=== PATIENT | male | born 1960 | race Caucasian/White ===

== ENCOUNTER 2017-10-07 14:50 | Emergency (ER) | payer BC ==
[~2017-10-07] VITALS: Ht 193 cm; Wt 158.8 kg
--- OUTSIDE RECORDS SUMMARY | ~2017-10-07 | XMS | Clinical Summary ---
Demographics + + + | Address | [address] | | | [place] [address] | + + + | Home Phone | | + + + | Preferred Language | Unknown | + + + | Marital Status | Single | + + + | Samaritan Affiliation | Unknown | + + + [...] Team Providers + +------+ + | Care Spoon Maker Name | Role | Phone | + +------+ + PP | Unavailable | + +------+ + Source Comments KITA is fully live on both [facility] Ambulatory and [facility] InPatient.[facility] Allergies Not on File Current Medications [...]
--- OUTSIDE RECORDS SUMMARY | ~2017-10-07 | XMS ---
Demographics + + + | Address | [address] | | | [place] [address] | + + + | Preferred Language | Unknown | + + + | Marital Status | Unknown | + + + | Anabaptist Affiliation | Unknown | + + + | Race | Unknown | + + + | Ethnic Group | Unknown | + + + Author + + + | Author | [facility] | + + + | Organization | [facility] | + + + | Address | [address] | | | [place] [address] | + + + | Phone | | + + + Care Team Providers + + + + | Care Credit Union Examiner Name | Role | Phone | + + + + Unavailable | Unavailable | + + + + PROBLEMS + + + + + + + + | Type | Condition | ICD9-CM | QOY76-CM | Onset | Condition | SNOMED | | | | Code | Code | Dates | Status | Code | + + + + + + + + | Problem | Family | Z80.0 | | | Active | 851950392 | | | history of | | | | | | | | colon | | | | | | | | cancer | | | | | | | | requiring | | | | | | | | screening | | | | | | | | colonoscop | | | | | | | | y | | | | | | + + + + + + + + | Problem | Degenerati | M17.0 | | | Active | [id number] | | | ve | | | | | 871617 | | | arthritis | | | | | | | | of knee, | | | | | | | | bilateral | | | | | | + + + + + + + + | Problem | Colon | | Z12.11 | | Active | 114655583 | | | cancer | | | | | | | | screening | | | | | | + + + + + + + + | Problem | Lumbar | M54.16 | | | Active | 290818389 | | | radiculopa | | | | | | | | thy | | | | | | + + + + + + + + | Problem | Trigger | | M65.332 | | Active | 1398610 | | | finger, | | | | | | | | left | | | | | | | | middle | | | | | | | | finger | | | | | | + + + + + + + + | Problem | Hypertensi | | I10 | | Active | 21946585 | | | on | | | | | | + + + + + + + + | Problem | Degenerati | | M51.36 | | Active | 94448112 | | | ve disc | | | | | | | | disease, | | | | | | | | lumbar | | | | | | + + + + + + + + | Problem | Trigger | | M65.342 | | Active | 5423513 | | | finger, | | | | | | | | left ring | | | | | | | | finger | | | | | | + + + + + + + + | Problem | Abnormal | D49.2 | | | Active | | | | skin | | | | | | | | growth | | | | | | + + + + + + + + | Problem | Staphyloco | 041.11 | | | Active | 544395774 | | | ccus | | | | | | | | aureus | | | | | | | | infection | | | | | | + + + + + + + + | Problem | POSTSURGIC | V45.89 | | | Active | 51433179 | | | [place] | | | | | | | | NEC | | | | | | + + + + + + + + | Assessment | Lumbar | M54.16 | | 21 March, | Active | [id number] | | | radiculopa | | | 2017 | | | | | thy | | | | | | + + + + + + + + | Problem | Bursitis | 726.33 | | | Active | 663702959 | | | of elbow | | | | | | + + + + + + + + | Problem | Skin Tag | 701.9 | | | Active | 573130900 | + + + + + + + + | Problem | Degenerati | 722.52 | | | Active | 23596597 | | | ve disc | | | | | | | | disease, | | | | | | | | lumbar | | | | | | + + + + + + + + | Problem | Closed | 813.01 | | | Active | 46891108 | | | fracture | | | | | | | | of | | | | | | | | olecranon | | | | | | | | process of | | | | | | | | ulna | | | | | | + + + + + + + + | Problem | Chronic | 724.4 | | | Active | 404203071 | | | radicular | | | | | | | | lumbar | | | | | | | | pain | | | | | | + + + + + + + + | Problem | Angina | 413.9 | | | Active | 306252442 | | | pectoris | | | | | | | | NOS | | | | | | + + + + + + + + | Problem | Bilateral | 719.46 | | | Active | 439093726 | | | chronic | | | | | | | | knee pain | | | | | | + + + + + + + + ALLERGIES + + + + +--------+ | Substance | Reaction | Event Type | Date | Status | + + + + +--------+ | Sulfa | vomiting | Drug Allergy | March, | Active | + + + + +--------+ SOCIAL HISTORY No smoking Hx information available PLAN OF CARE VITAL SIGNS + + + + | Height | 77 in | 2017-03-21 | + + + + | Weight | 371.0 lbs | 2017-03-21 | + + + + | BMI | 43.99 kg/m2 | 2017-03-21 | + + + + | Temperature | 97.9 degrees Fahrenheit | 2017-03-21 | + + + + | Heart Rate | 82 /min | 2017-03-21 | + + + + | Blood pressure systolic | 127 mm Hg | 2017-03-21 | + + + + | Blood pressure diastolic | 86 mm Hg | 2017-03-21 | + + + + MEDICATIONS + + + + + + + +--------+ | Medicati | Instruct | Dosage | Frequenc | Start | End Date | Duration | Status | | on | ions | | y | Date | | | | + + + + + + + +--------+ | Zyrtec | Orally | 1 tablet | 24h | | | | Active | | Allergy | Once a | | | | | | | | 10 MG | day | | | | | | | + + + + + + + +--------+ | Multivit | | | | | | | Active | | amins | | | | | | | | + + + + + + + +--------+ | Aspir-81 | Orally | 1 tablet | 24h | | | 30 | Active | | 81 MG | Once a | | | | | day(s) | | | | day | | | | | | | + + + + + + + +--------+ | Gabapent | Orally | 1 | | 20 Sep, | | 30 | Active | | in 100 | QAM | capsule | | 2016 | | day(s) | | | mg | | | | | | | | + + + + + + + +--------+ | Oxycodon | Orally | 1-2 | 4h | | | | Active | | e-Acetam | every 4 | tablet | | | | | | | inophen | hrs | as | | | | | | | 5-325 MG | | needed | | | | | | + + + + + + + +--------+ | Gabapent | Orally | 2 | | | | 30 | Active | | in 300 | qhs | capsules | | | | day(s) | | | MG | | | | | | | | + + + + + + + +--------+ | Hydrochl | Orally | 1 tab(s) | 24h | | | 90 days | Active | | orothiaz | qd | | | | | | | | tigist 12.5 | | | | | | | | | MG | | | | | | | | + + + + + + + +--------+ RESULTS No Results PROCEDURES + + + + + | Procedure | Date Ordered | Related Diagnosis | Body Site | + + + + + | Est Level IV | March 21, 2017 | | | | Extended | | | | + + + + + | DSCHRG MED/CURRENT | March 21, 2017 | | | | MED MERGE | | | | + + + + + | DOC MEDS VERIFIED | March 21, 2017 | | | | W/PT OR RE | | | | + + + + + IMMUNIZATIONS No Known Immunizations"
--- OUTSIDE RECORDS SUMMARY | ~2017-10-07 | XMS ---
Demographics + + + | Address | [address] | | | [place] [address] | + + + | Preferred Language | Unknown | + + + | Marital Status | Unknown | + + + | Zoroastrianism Affiliation | Unknown | + + + | Race | Unknown | + + + | Ethnic Group | Unknown | + + + Author + + + | Author | [facility] | + + + | Organization | [facility] | + + + | Address | [address] | | | [place] [address] | + + + | Phone | | + + + Care Team Providers + + + + | Care Semi Automatic Sewing Machine Operator Name | Role | Phone | + + + + Unavailable | Unavailable | + + + + PROBLEMS +---------+ + + +--------+ + + | Type | Condition | ICD9-CM | RPA81-OE | Onset | Condition | SNOMED | | | | Code | Code | Dates | Status | Code | +---------+ + + +--------+ + + | Problem | Family | Z80.0 | | | Active | 136381659 | | | history of | | [...] y | | | | | | +---------+ + + +--------+ + + | Problem | Degenerati | M17.0 | | | Active | [id number] | | | ve | | | | | 058032 | | | arthritis | | | | | | | | of knee, | | | | | | | | bilateral | | | | | | +---------+ + + +--------+ + + | Problem | Colon | | Z12.11 | | Active | 908708466 | | | cancer | | | | | | | | screening | | | | | | +---------+ + + +--------+ + + | Problem | Lumbar | M54.16 | | | Active | 664027811 | | | radiculopa | | | | | | | | thy | | | | | | +---------+ + + +--------+ + + | Problem | Trigger | | M65.332 | | Active | 2780388 | | | finger, | | | | | | | | left | | | | | | | | middle | | | | | | | | finger | | | | | | +---------+ + + +--------+ + + | Problem | Hypertensi | | I10 | | Active | 25718137 | | | on | | | | | | +---------+ + + +--------+ + + | Problem | Degenerati | | M51.36 | | Active | 03495730 | | | ve disc | | | | | | | | disease, | | | | | | | | lumbar | | | | | | +---------+ + + +--------+ + + | Problem | Trigger | | M65.342 | | Active | 2092671 | | | finger, | | | | | | | | left ring | | | | | | | | finger | | | | | | +---------+ + + +--------+ + + | Problem | Abnormal | D49.2 | | | Active | | | | skin | | | | | | | | growth | | | | | | +---------+ + + +--------+ + + | Problem | Staphyloco | 041.11 | | | Active | 294414721 | | | ccus | | | | | | | | aureus | | | | | | | | infection | | | | | | +---------+ + + +--------+ + + | Problem | POSTSURGIC | V45.89 | | | Active | 07678278 | | | [place] | | | | | | | | NEC | | | | | | +---------+ + + +--------+ + + | Problem | Bursitis | 726.33 | | | Active | 270409324 | | | of elbow | | | | | | +---------+ + + +--------+ + + | Problem | Skin Tag | 701.9 | | | Active | 184569650 | +---------+ + + +--------+ + + | Problem | Degenerati | 722.52 | | | Active | 51852118 | | | ve disc | | | | | | | | disease, | | | | | | | | lumbar | | | | | | +---------+ + + +--------+ + + | Problem | Closed | 813.01 | | | Active | 03616824 | | | fracture | | | | | | | | of | | | | | | | | olecranon | | | | | | | | process of | | | | | | | | ulna | | | | | | +---------+ + + +--------+ + + | Problem | Chronic | 724.4 | | | Active | 233200778 | | | radicular | | | | | | | | lumbar | | | | | | | | pain | | | | | | +---------+ + + +--------+ + + | Problem | Angina | 413.9 | | | Active | 322847190 | | | pectoris | | | | | | | | NOS | | | | | | +---------+ + + +--------+ + + | Problem | Bilateral | 719.46 | | | Active | 794099182 | | | chronic | | | | | | | | knee pain | | | | | | +---------+ + + +--------+ + + ALLERGIES Unknown Allergies SOCIAL HISTORY No smoking Hx information available PLAN OF CARE VITAL SIGNS MEDICATIONS Unknown Medications RESULTS No Results PROCEDURES No Known procedures IMMUNIZATIONS No Known Immunizations"
[~2017-10-07 14:50] MED LIST: ALBUTEROL SULF8.5 GM INH; ASPIRIN EC81 MG PO; AZITHROMYCIN250 MG PO; DOXYCYCLINE HY100 MG PO; HYDROCHLOROTH12.5 M1 PO; HYDROCHLOROTHIA25 MG PO; NEURONTIN300 MG PO; NORCO 5-325 TA1 EACH PO; PERCOCET 5-3251 EACH PO
== END 2017-10-07 15:09 | disposition home or self-care (01) ==
LOC: ED 14:50
DX: M79.672 Pain in left foot (principal); Z00.8 Encounter for other general examination

== ENCOUNTER 2018-02-18 02:32 | Emergency (ER) | payer BC ==
[~2018-02-18] VITALS: Ht 193 cm; Wt 163.3 kg
--- OUTSIDE RECORDS SUMMARY | ~2018-02-18 | XMS | Clinical Summary ---
Demographics + + + | Address | [address] | | | [place] [address] | + + + | Home Phone | | + + + | Preferred Language | Unknown | + + + | Marital Status | Single | + + + | Buddhism Affiliation | Unknown | + + + | Race | Unknown | + + + | Ethnic Group | Other Race | + + + Author + + + | Author | [facility] | + + + | Organization | [facility] | + + + | Address | Unknown | + + + | Phone | Unavailable | + + + Care Team Providers + +------+ + | Care President Educational Institution Name | Role | Phone | + +------+ + PP | Unavailable | + +------+ + Source Comments KITA is fully live on both [facility] Ambulatory and [facility] InPatient.[facility] Allergies Not on File Current Medications Not on file Active Problems Not on file Social History + +-------+ +--------+------+ | Tobacco Use | Types | Packs/Day | Years | Date | | | | | Used | | + +-------+ +--------+------+ | Never Assessed | | | | | + +-------+ +--------+------+ + + + | Sex Assigned at | Date Recorded | | | | + + + | Not on file | | + + + Plan of Treatment Not on file Results Not on filefrom Last 3 Months"
--- OUTSIDE RECORDS SUMMARY | ~2018-02-18 | XMS | Clinical Summary ---
Demographics + + + | Address | [address] | | | [place] [address] | + + + | Home Phone | | + + + | Preferred Language | Unknown | + + + | Marital Status | Single | + + + | Voodoo Affiliation | Unknown | + + + [...] Team Providers + +------+ + | Care Chief Green Officer Name | Role | Phone | + +------+ + PP | Unavailable | + +------+ + Source Comments KITA is fully live on both [facility] Ambulatory and [facility] InPatient.[facility] Allergies Not on File Current Medications Not [...]
[2018-02-18] MEDS ORDERED: NORCO 5-325 TA1 EACH PO (03:30)
== END 2018-02-18 03:46 | disposition home or self-care (01) ==
LOC: ED 02:32
DX: J11.1 Influenza due to unidentified influenza virus with other respiratory manifestations (principal); I10 Essential (primary) hypertension; Z88.2 Allergy status to sulfonamides; Z88.5 Allergy status to narcotic agent; Z79.82 Long term (current) use of aspirin; Z79.899 Other long term (current) drug therapy
CPT/HCPCS: 71046; 99283

== ENCOUNTER 2018-03-20 02:32 | Emergency (ER) | payer BC ==
[~2018-03-20] VITALS: Ht 193 cm; Wt 170.1 kg
[2018-03-20] MEDS ORDERED: NORCO 5-325 TA1 EACH PO (04:34)
== END 2018-03-20 04:46 | disposition home or self-care (01) ==
LOC: ED 02:32
DX: R10.9 Unspecified abdominal pain (principal); I10 Essential (primary) hypertension; Z87.891 Personal history of nicotine dependence; Z88.2 Allergy status to sulfonamides; Z88.5 Allergy status to narcotic agent; Z79.82 Long term (current) use of aspirin; Z79.899 Other long term (current) drug therapy
CPT/HCPCS: 74176; 80053; 81001; 83690; 85025; 96374; 96375; 99284; J1885; J2270; J2405

== ENCOUNTER 2020-05-17 22:31 | Emergency (ER) | payer BC ==
[~2020-05-17] VITALS: Ht 195.6 cm; Wt 158.8 kg
--- OUTSIDE RECORDS SUMMARY | ~2020-05-17 | XMS | Encounter Summary ---
Demographics + + + | Address | [address] | | | [place] [address] | + + + | Home Phone | | + + + | Preferred Language | Unknown | + + + | Marital Status | Single | + + + | Amish Affiliation | Unknown | + + + | Race | Unknown | + + + | Ethnic Group | Other Race | + + + Author + + + | Author | [facility] | + + + | Organization | [facility] | + + + | Address | Unknown | + + + | Phone | Unavailable | + + + Care Team Providers + +------+ + | Care Underwriting Support Manager Name | Role | Phone | + +------+ + PCP | Unavailable | + +------+ + Encounter Details +--------+ + + + + | Date | Type | Department | Care Team | Description | +--------+ + + + + | 08/17/ | Hospital | LAB SURGICAL | | | | 2010 | Encounter | PATHOLOGY [address] | | | | | [address] | | | | | | [place], [place] | | | | | | [address] | | | +--------+ + + + + Social History + +-------+ +--------+------+ | Tobacco [...] on file | | + + + + + + + | Job Start Date | Occupation | Industry | + + + + | Not on file | Not on file | Not on file | + + + + + + + + | Travel History | Travel Start | Travel End | + + + + + + | No recent travel history available. | + + documented as of this encounter Plan of Treatment Not on filedocumented as of this encounter Visit Diagnoses Not on filedocumented in this encounter"
--- OUTSIDE RECORDS SUMMARY | ~2020-05-17 | XMS | Clinical Summary ---
Demographics + + + | Address | [address] | | | [place] [address] | + + + | Home Phone | | + + + | Preferred Language | Unknown | + + + | Marital Status | Single | + + + | Anglican Affiliation | Unknown | + + + [...] Team Providers + +------+ + | Care Rn Support Services Name | Role | Phone | + +------+ + PCP | Unavailable | + +------+ + Source Comments KITA is fully live on both [facility] Ambulatory and [facility] InPatient.[facility] Allergies Not on File Medications Not on file Active Problems Not [...] recent travel history available. | + + Last Filed Vital Signs Not on file Plan of Treatment Not on file Results Not on filefrom Last 3 Months Insurance + +--------+ +--------+-------+---------+------+ | Payer | Benefi | Subscriber | Effect | Phone | Address | Type | | | t Plan | ID | efrain | | | | | | / | | Dates | | | | | | Group | | | | | | + +--------+ +--------+-------+---------+------+ | [employer] | FIRST | xxxxxxxxx | 12/14/19 | | | PPO | | | CHOICE | | 08-Pre | | | | | | | | sent | | | | | | HEALTH | | | | | | + +--------+ +--------+-------+---------+------+ + +--------+ +--------+ + + | Guarantor Name | Accoun | Relation to | Date | Phone | Billing Address | | | t Type | Patient | of | | | | | | | | | | + +--------+ +--------+ + + | Usman Leggett | Person | Self | [birth year] | [address] | | | al/Jeremy | | 1960 | [phone] | [address] [place], | | | honey | | | [address] (Home) | [place] [address] | + +--------+ +--------+ + +"
--- OUTSIDE RECORDS SUMMARY | ~2020-05-17 | XMS | Encounter Summary ---
Demographics + + + | Address | [address] | | | [place] [address] | + + + | Home Phone | | + + + | Preferred Language | Unknown | + + + | Marital Status | Single | + + + | Sabianism Affiliation | Unknown | + + + | Race | Unknown | + + + | Ethnic Group | Other Race | + + + Author + + + | Author | [facility] | + + + | Organization | [facility] | + + + | Address | Unknown | + + + | Phone | Unavailable | + + + Care Team Providers + +------+ + | Care Envelope Fold Operator Name | Role | Phone | + [...] [address] | | | | | | [place], [place] | | | | | | [address] | | | +--------+ + + + [...]
--- OUTSIDE RECORDS SUMMARY | ~2020-05-17 | XMS | Clinical Summary ---
Demographics + + + | Address | [address] | | | [place] [address] | + + + | Home Phone | | + + + | Preferred Language | Unknown | + + + | Marital Status | Single | + + + | Episcopal Affiliation | Unknown | + + + [...] Team Providers + +------+ + | Care Emotional Support Teacher Name | Role | Phone | + +------+ + PCP | Unavailable | + +------+ + Source Comments KITA is fully live on both [facility] Ambulatory and [facility] InPatient.[facility] Allergies Not on File Medications Not [...] | | | [address] (Home) | [place] [address] | + +--------+ +--------+ + +"
--- OUTSIDE RECORDS SUMMARY | ~2020-05-17 | XMS | Encounter Summary ---
Demographics + + + | Address | [address] | | | [place] [address] | + + + | Home Phone | | + + + | Preferred Language | Unknown | + + + | Marital Status | Single | + + + | Yarsani Affiliation | Unknown | + + + | Race | Unknown | + + + | Ethnic Group | Other Race | + + + Author + + + | Author | [facility] | + + + | Organization | [facility] | + + + | Address | Unknown | + + + | Phone | Unavailable | + + + Care Team Providers + +------+ + | Care Senior Information Security Architect Name | Role | Phone | + +------+ + PCP | Unavailable | + +------+ + Encounter Details +--------+ + + + + | Date | Type | Department | Care Team | Description | +--------+ + + + + | 08/15/ | Hospital | LAB SURGICAL | | | | 2010 | Encounter | PATHOLOGY [address] | | | | [address] | | | | | | [place], [place] | | | | | | [address] | | | +--------+ + + + [...] Not on filedocumented as of this encounter Procedures + +--------+ + + + | Procedure Name | Priori | Date/Time | Associated Diagnosis | Comments | | | ty | | | | + +--------+ + + + | PATHOLOGY CONSULT - | Routin | 08/15/2011 | | Results for this | | REVIEW OUTSIDE | e | | | procedure are in the | | SLIDES | | | | results section. | + +--------+ + + + documented in this encounter Results PATHOLOGY CONSULT - REVIEW OUTSIDE SLIDES (08/15/2011) + + + + + + | Component | Value | Ref Range | Performed | Pathologist | | | | | At | Signature | + + + + + + | PATHOLOGY | SOURCE OF SPECIMEN:A | | [facility] | | | CONSULT - | Outside consultation | | DEPARTMENT | | | SLIDES | Materials | | OF | | | | Received:Referring | | PATHOLOGY | | | | Institution: [facility] | | | | | | [address] | | | | | | [place] [address] | | | | | | Accession Number: | | | | | | [id number] | | | | | | Collection Date: | | | | | | 08/15/2011 Sublabeled | | | | | | H&E | | | | | | IHC | | | | | | Unstained | | | | | | BlocksB1 and B2 | | | | | | 2 | | | | | | 0 | | | | | | 0 | | | | | | 1 | | | | | | Final Pathologic | | | | | | Diagnosis:A. Left | | | | | | lower parathyroid gland, | | | | | | excision ([id number], | | | | | | 08.15.11): - | | | | | | Hypercellular | | | | | | parathyroid gland | | | | | | (nodular) with | | | | | | cystic/degenerativechang | | | | | | es and hemosiderin-laden | | | | | | macrophages- Focal | | | | | | ectopic thymic | | | | | | parenchyma within | | | | | | parathyroid gland soft | | | | | | tissue- Negative for | | | | | | malignancy B. 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 My | | | | | | electronic signature | | | | | | indicates that I have | | | | | | personally reviewed | | | | | | alldiagnostic slides, | | | | | | the gross and/or | | | | | | microscopic portion of | | | | | | thisreport and | | | | | | formulated the final | | | | | | diagnosis. | | | | | | Rendering Diagnostician: | | | | | | Jd Friedman | | | | | | Alanai | | | | | | ivonne Signed 08/29/2011 | | | | | | 8:40PM | | | | + + + + + + + + | Specimen | + + | | + + + + + + + | Performing | Address | City/State/Zipcode | Phone Number | | Organization | | | | + + + + + | [facility] | [address] | [place] [address] | | | PATHOLOGY | [address] | | | + + + + + documented in this encounter Visit Diagnoses Not on filedocumented in this encounter"
--- OUTSIDE RECORDS SUMMARY | ~2020-05-17 | XMS | Encounter Summary ---
Demographics + + + | Address | [address] | | | [place] [address] | + + + | Home Phone | | + + + | Preferred Language | Unknown | + + + | Marital Status | Single | + + + | Latter-Day Affiliation | Unknown | + + + | Race | Unknown | + + + | Ethnic Group | Other Race | + + + Author + + + | Author | [facility] | + + + | Organization | [facility] | + + + | Address | Unknown | + + + | Phone | Unavailable | + + + Care Team Providers + +------+ + | Care Customer Sales Distributor Name | Role | Phone | + [...] [address] | | | | | | [place], [place] | | | | | | [address] | | | +--------+ + + + [...] | | | | | [place] [address] | | | | | | Accession Number: | | | | | | [id number] | | | | | | Collection [...] | | | | | | excision ([id number], | | | | | | 08.15.11): [...] | | | | | | excision ([id number], | | | | | | 08.15.11): [...] | + + + + + | [facility] | [address] | [place] [address] | | | PATHOLOGY | [address] | | | + + + + + documented in this encounter Visit Diagnoses Not on filedocumented in this encounter"
[~2020-05-17 22:31] MED LIST changes: +MELOXICAM7.5 MG PO; +MULTIVITAMINS1 EAC8 PO; +ZYRTEC10 MG PO
[2020-05-18] MEDS ORDERED: NORCO 5-325 TA1 EACH PO (02:17)
== END 2020-05-18 02:28 | disposition home or self-care (01) ==
LOC: ED 22:31
DX: R10.31 Right lower quadrant pain (principal); I10 Essential (primary) hypertension; Z87.891 Personal history of nicotine dependence; Z88.2 Allergy status to sulfonamides; Z88.5 Allergy status to narcotic agent; Z88.0 Allergy status to penicillin; Z79.82 Long term (current) use of aspirin; Z79.899 Other long term (current) drug therapy
CPT/HCPCS: 74177; 80053; 81001; 83690; 83735; 85025; 96375; 99284-25; J1170; J2405; J7030; Q9967

== ENCOUNTER 2020-10-15 16:01 | Emergency (ER) | payer BC ==
[~2020-10-15] VITALS: Ht 193 cm; Wt 163.3 kg
[2020-10-15] MEDS ORDERED: TAMSULOSIN HCL0.4 MG PO (16:20)
== END 2020-10-15 18:10 | disposition home or self-care (01) ==
LOC: ED 16:01
DX: K42.0 Umbilical hernia with obstruction, without gangrene (principal); Z87.891 Personal history of nicotine dependence; Z88.2 Allergy status to sulfonamides; Z88.5 Allergy status to narcotic agent; Z88.0 Allergy status to penicillin; Z79.899 Other long term (current) drug therapy; Z79.82 Long term (current) use of aspirin
CPT/HCPCS: 74177; 80053; 83605; 85025; 96374; 99284-25; J3010; J7030; Q9967

== ENCOUNTER 2022-03-05 05:39 | Emergency (ER) | payer BC ==
[~2022-03-05] VITALS: Ht 193 cm; Wt 163.3 kg
[~2022-03-05 05:39] MED LIST changes: +TAMSULOSIN HCL0.4 MG PO
--- OUTSIDE RECORDS SUMMARY | 2022-03-05 05:42 | XMS ---
PreManage Notification: GUMARO FOUNTAIN Security Site Acquisition Specialist Events No recent Security Events currently on file [facility] There are no care providers on record at this time. [place] has no Care Guidelines for this patient. Trinh VISIT COUNT (12 MO.) 1 MIGUELINA Kwon TOTAL 1 NOTE: Visits indicate total known visits. ED/UCC VISIT TRACKING (12 MO.) 03/05/2022 05:39 MIGUELINA Humphrey [place] TYPE: Emergency COMPLAINT: - VOMITING INPATIENT VISIT TRACKING (12 MO.) No inpatient visits to display in this time frame [id number]
[2022-03-05] MEDS ORDERED: MECLIZINE HCL12.5 MG PO (08:34)
--- NOTE | 2022-03-09 19:05 | EKG ---
[facility] [address] [place] [address] Signed Normal sinus rhythm Normal ECG No previous ECGs available Confirmed by SIENA COOLEY MD ([id number]) on 03/09/2022 7:04:47 PM Electronically Signed By: SIENA COOLEY MD 03/09/22 1905 PATIENT NAME: АЛЕКСАНДРGUMARO JR Electrocardiogram DATE OF : 62 PHYSICIAN: SIENA COOLEY MD REPORT #: [id number] REPORT IS CONFIDENTIAL AND NOT TO BE RELEASED WITHOUT AUTHORIZATION
== END 2022-03-05 09:00 | disposition home or self-care (01) ==
LOC: ED 05:39
DX: H81.10 Benign paroxysmal vertigo, unspecified ear (principal); I10 Essential (primary) hypertension; Z87.891 Personal history of nicotine dependence; Z88.2 Allergy status to sulfonamides; Z88.0 Allergy status to penicillin; Z88.5 Allergy status to narcotic agent; Z88.8 Allergy status to other drugs, medicaments and biological substances
CPT/HCPCS: 36415; 70450; 71045; 80053; 81001; 83735; 84484; 85025; 85379; 93005; 93010; 96374; 99285-25; J2405; J7030

== ENCOUNTER 2022-05-08 12:27 | Emergency (ER) | payer BC ==
[~2022-05-08] VITALS: Ht 193 cm; Wt 163.3 kg
[~2022-05-08 12:27] MED LIST changes: +MECLIZINE HCL12.5 MG PO
--- OUTSIDE RECORDS SUMMARY | 2022-05-08 12:30 | XMS ---
PreManage Notification: GUMARO FOUNTAIN Security Senior Graphic Designer Events No recent Security Events currently on file [facility] There are no care providers on record at this time. Jordan has no Care Guidelines for this patient. Trinh VISIT COUNT (12 MO.) 2 MIGUELINA Kwon TOTAL 2 NOTE: Visits indicate total known visits. ED/C VISIT TRACKING (12 MO.) 05/08/2022 12:28 MIGUELINA Humphrey [place] TYPE: Emergency COMPLAINT: - FLU SYMPTOMS 03/05/2022 05:39 MIGUELINA Humphrey [place] TYPE: Emergency COMPLAINT: - VOMITING DIAGNOSES: - Allergy status to sulfonamides - Benign paroxysmal vertigo, unspecified ear - Essential (primary) hypertension - Personal history of nicotine dependence - Allergy status to narcotic agent - Nausea with vomiting, unspecified - Allergy status to penicillin - Allergy status to other drugs, medicaments and biological substances INPATIENT VISIT TRACKING (12 MO.) No inpatient visits to display in this time frame [id number]
== END 2022-05-08 14:18 | disposition home or self-care (01) ==
LOC: ED 12:27
DX: U07.1 COVID-19 (principal); I10 Essential (primary) hypertension; Z87.891 Personal history of nicotine dependence; Z88.2 Allergy status to sulfonamides; Z88.5 Allergy status to narcotic agent; Z88.0 Allergy status to penicillin; Z79.899 Other long term (current) drug therapy
CPT/HCPCS: 87502; 99284; C9803; U0003

== ENCOUNTER 2022-11-21 12:38 | Day surgery (SDC) | payer BC ==
[~2022-11-21] VITALS: Ht 193 cm; Wt 152.0 kg
--- NOTE | 2022-11-21 14:59 | NUR ---
11/21/22 Clarence9 Kendal Thompson- PT ARRIVES TO PACU AWAKE AND TALKING. PT REPORTS NO PAIN OR NAUSEA. RESP EVEN AND UNLABORED. OXYGEN SAT HIGH 90'S ON 2L VIA NC. PT PASSING FLATUS.
--- NOTE | 2022-11-22 14:41 | PATH ---
[facility] [address] [facility] [address] [facility] [place] [address] Signed SPECIMEN(S): A RECTAL POLYP SPECIMEN SOURCE: A. RECTAL POLYP CLINICAL HISTORY: Family history of colon CA, history of polyps. Postop: Rectal polyp, diverticulosis. FINAL PATHOLOGIC DIAGNOSIS: Rectal polyp: - Hyperplastic polyp (one fragment). JVR:eddi:C2LOVE MICROSCOPIC EXAMINATION: Histologic sections of all submitted blocks are examined by light microscopy. These findings, together with the gross examination, support the pathologic diagnosis. GROSS DESCRIPTION: The specimen, labeled and designated "Betsey, rectal polyp," is received in formalin and consists of one nielson soft tissue fragment, 0.3 cm. Entirely submitted in (A1). VB (under the direct supervision of a pathologist) The Gross Description was prepared using a voice recognition system. The report was reviewed for accuracy; however, sound-alike word errors, addition and/or deletions may occur. If there is any question about this report, please contact Client Services. PERFORMING LABORATORY: The technical component was performed by [facility], [address] [place] [id number] (CLIA# [id number]). Professional interpretation was performed by [facility], [address] [place] [id number] (CLIA#: [id number]). Diagnostician: Arben Martinez MD Pathologist Electronically Signed 11/22/2022 PATIENT NAME: GUMARO FOUNTAIN PATHOLOGY DATE OF : 62 REPORT #: [id number] PHYSICIAN: [place] PCP: INDU GONZALES MD REPORT IS CONFIDENTIAL AND NOT TO BE RELEASED WITHOUT AUTHORIZATION
--- NOTE | 2022-11-28 14:37 | OR ---
[facility] [address] [place], [place] [address] Signed DATE OF OPERATION: 11/21/2022 SURGEON: Purnima Wagner MD PREOPERATIVE DIAGNOSES: 1. History of polyps. 2. Morbid obesity (355 pounds). POSTOPERATIVE DIAGNOSES: 1. Diverticular disease. 2. Small sessile polyp of rectum. PROCEDURE: Total colonoscopy to cecum with cold snare polypectomy x1. ANESTHESIA: Intravenous sedation, fentanyl 100 mcg and Versed 5 mg. INDICATIONS: This morbidly obese 62-year-old white man is a patient of Dr. Ely. He has a long-standing incisional hernia at the umbilicus. Weight loss efforts have been undertaken anticipating repair when a more acceptable weight has been obtained, so as to diminish chances of postoperative recurrence of the hernia. He is currently 355 lbs. He has undergone colonoscopy in the past and is now to undergo colonoscopy for surveillance. He understands the risks of bleeding, infection, and perforation and wished to proceed. FINDINGS: The prep was good. Complete colonoscopy was undertaken to the cecum without question. He had diverticula scattered of the sigmoid and left colon. Complete colonoscopy was undertaken to the cecum. There was a small sessile polyp of the rectum, which was excised with cold snare polypectomy technique. DESCRIPTION OF PROCEDURE: The patient was brought to the endoscopy suite and placed in lateral decubitus position given intravenous sedation to the point of slurred speech and nystagmus. Digital rectal examination was normal. An Olympus video colonoscope was passed in the rectum and manipulated throughout the colon noting diverticular change of the sigmoid and left colon. Scope was ultimately Electronically Signed By: PURNIMA WAGNER MD 11/28/22 1437 PATIENT NAME: GUMARO FOUNTAIN JR OPERATIVE REPORT DATE OF : 62 REPORT #: [id number] PHYSICIAN: PURNIMA WAGNER MD PCP: DEUCE ELY MD REPORT IS CONFIDENTIAL AND NOT TO BE RELEASED WITHOUT AUTHORIZATION [facility] [address] [place], [place] [address] Signed advanced to the cecum. Upon intubation of the cecum, the ileocecal valve and appendiceal orifice appeared normal. Scope was withdrawn from that point and examination throughout was undertaken showing no sign of abnormality other than diverticulosis until the rectum, where a small sessile polyp was noted, this was excised with cold snare polypectomy technique without problem. The specimen was passed for Pathology. The scope was removed. The patient was taken to the recovery room in good condition. CONCLUDING DIAGNOSIS: Small polyp of the rectum. PLAN: Recommend repeat colonoscopy in three years. We would recommend fiber supplement or high-fiber diet in relation to his diverticulosis. As regard to his umbilical/incisional hernia, further consideration for repair will be made upon a more effective approach to his weight loss as the hernia is not incarcerated and not particularly seriously symptomatic at the moment. MD MARIA ELENA Christian/KAITLIN /[id number] cc: Deuce Ely MD Copies: DEUCE ELY MD ~ Electronically Signed By: PURNIMA WAGNER MD 11/28/22 1437 PATIENT NAME: GUMARO FOUNTAIN OPERATIVE REPORT DATE OF : 62 REPORT #: [id number] PHYSICIAN: PURNIMA WAGNER MD PCP: DEUCE ELY MD REPORT IS CONFIDENTIAL AND NOT TO BE RELEASED WITHOUT AUTHORIZATION
== END 2022-11-21 15:44 | disposition home or self-care (01) ==
LOC: OPS 12:38 → DS 12:42 → OPS 14:00
PROVIDERS: ATTEND Surgery
PROC: 0DBP8ZZ Excision of Rectum, Via Natural or Artificial Opening Endoscopic (ICD-10-PCS; principal; 2022-11-21 14:00)
DX: Z12.11 Encounter for screening for malignant neoplasm of colon (principal); K62.1 Rectal polyp; I10 Essential (primary) hypertension; K42.0 Umbilical hernia with obstruction, without gangrene; E66.01 Morbid (severe) obesity due to excess calories; Z79.899 Other long term (current) drug therapy; Z86.010 Personal history of colon polyps; Z80.0 Family history of malignant neoplasm of digestive organs; Z88.0 Allergy status to penicillin; Z88.2 Allergy status to sulfonamides
CPT/HCPCS: 99153; G0500; J2250; J3010; J7121

== ENCOUNTER 2023-01-15 11:42 | Emergency (ER) | payer BC ==
[~2023-01-15] VITALS: Ht 193 cm; Wt 151.9 kg
[2023-01-15] MEDS ORDERED: HYDROCODON-ACE1 EA11 PO (13:05)
== END 2023-01-15 13:12 | disposition home or self-care (01) ==
LOC: ED 11:42
DX: M25.552 Pain in left hip (principal); I10 Essential (primary) hypertension; Z87.891 Personal history of nicotine dependence; Z88.5 Allergy status to narcotic agent; Z88.0 Allergy status to penicillin; Z88.2 Allergy status to sulfonamides; Z79.899 Other long term (current) drug therapy
CPT/HCPCS: 73502; 96372; 99283-25; J1885

== ENCOUNTER 2024-08-20 19:34 | Emergency (ER) | payer BC ==
[~2024-08-20] VITALS: Ht 193 cm; Wt 170.0 kg
[~2024-08-20 19:34] MED LIST changes: +HYDROCODON-ACE1 EA10 PO; +HYDROCODON-ACE1 EA11 PO; +LIDODERM1 EACH TOP; +NAPROSYN500 MG PO
[2024-08-20] MEDS ORDERED: TOPIRAMATE25 MG PO (19:42)
[2024-08-20] MEDS ORDERED: IRBESARTAN150 MG PO (19:42)
[2024-08-20] MEDS ORDERED: KETOROLAC TROMETHAMINE 60 MG/2 ML VIAL IM ONE (20:00)
[2024-08-20] MEDS ORDERED: CELECOXIB 200 MG CAP PO ONE (20:00)
[2024-08-20] MEDS ORDERED: CELEBREX200 MG PO (21:18)
[2024-08-20] MEDS ORDERED: TRAMADOL HCL 50 MG HOME.PACK PO ONE (21:30)
[2024-08-20 21:37] VITALS: BP 141/89
== END 2024-08-20 21:37 | disposition home or self-care (01) ==
LOC: ED 19:34
DX: S80.11XA Contusion of right lower leg, initial encounter (principal); I10 Essential (primary) hypertension; Z87.891 Personal history of nicotine dependence; Z88.2 Allergy status to sulfonamides; Z88.5 Allergy status to narcotic agent; Z88.0 Allergy status to penicillin; Z79.899 Other long term (current) drug therapy; W18.09XA Striking against other object with subsequent fall, initial encounter
CPT/HCPCS: 73590; 99283; A9270

== ENCOUNTER 2024-09-03 19:44 | Emergency (ER) | payer BC ==
[~2024-09-03] VITALS: Ht 195.6 cm; Wt 181.0 kg
[~2024-09-03 19:44] MED LIST changes: +CELEBREX200 MG PO; +IRBESARTAN150 MG PO; +TOPIRAMATE25 MG PO
--- OUTSIDE RECORDS SUMMARY | 2024-09-03 19:50 | XMS ---
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 E.Terrence VISIT COUNT (12 MO.) 2 [facility] TOTAL 2 NOTE: Visits indicate total known visits. ED/UCC VISIT TRACKING (12 MO.) 09/03/2024 19:44 [facility] [place] TYPE: Emergency COMPLAINT: - FOOT SWELLING 2024 19:34 [facility] [place] TYPE: Emergency COMPLAINT: - FALL DIAGNOSES: - Allergy status to narcotic agent - Allergy status to penicillin - Allergy status to sulfonamides - Contusion of right lower leg, initial encounter - Essential (primary) hypertension - Other usp (current) drug therapy - Personal history of nicotine dependence - Striking against other object with subsequent fall, initial encounter - Unspecified injury of right lower leg, initial encounter INPATIENT VISIT TRACKING (12 MO.) No inpatient visits to display in this time frame [email or web address]
[2024-09-03 20:42] LABS: BASOPHILS 1.1 % (0-2); EOSINOPHILS 1.9 % (0-6); HEMATOCRIT 39.6 % (35.0-50.0); HEMOGLOBIN 13.8 g/dL (12.0-18.0); LYMPHOCYTES 29.4 % (24-44); MCH 31.7 (27-36); MCHC 34.9 g/dl (30-36); MCV 90.9 fl (81-99); MONOCYTES 9.1 % (0-12); NEUTROPHILS 58.5 % (39-80); PLATELET COUNT 134 K/uL (140-440); RBC 4.36 M/ul (4.3-5.7); RDW 13.8 (10.5-15.0)
[2024-09-03 20:58] LABS: ALBUMIN 3.5 g/dL (3.4-5.0); ALBUMIN/GLOBULIN RATIO 0.88 (1.1-2.4); ANION GAP 8.8 (7-21); BILIRUBIN, TOTAL 0.5 ng/dL (0.2-1.0); BUN/CREATININE RATIO 11.45 (6.0-28.6); CALCIUM 8.5 mg/dL (8.5-10.1); CREATININE, SERUM 1.31 mg/dL (0.70-1.30); POTASSIUM 3.8 mmol/L (3.5-5.1); PROTEIN, TOTAL 7.5 g/dL (6.4-8.2)
[2024-09-03] MEDS ORDERED: LASIX20 MG PO (21:29)
[2024-09-03] MEDS ORDERED: ONDANSETRON ODT8 MG PO (21:29)
[2024-09-03] MEDS ORDERED: HYDROCODON-ACE1 EA10 PO (21:29)
[2024-09-03] MEDS ORDERED: FUROSEMIDE 40 MG/4 ML VIAL IV ONE (21:30)
[2024-09-03] MEDS ORDERED: HYDROCODONE BIT/ACETAMINOPHEN 5/325 MG 1 TAB HOME.PACK PO ONE (21:45)
[2024-09-03] MEDS ORDERED: ONDANSETRON 4 MG HOME.PACK SL ONE (21:45)
[2024-09-03 22:22] VITALS: BP 132/82
== END 2024-09-03 22:22 | disposition home or self-care (01) ==
LOC: ED 19:44
PROVIDERS: Family Medicine
DX: S80.11XA Contusion of right lower leg, initial encounter (principal); R60.9 Edema, unspecified; I10 Essential (primary) hypertension; Z87.891 Personal history of nicotine dependence; Z88.2 Allergy status to sulfonamides; Z88.0 Allergy status to penicillin; Z88.5 Allergy status to narcotic agent; Z79.899 Other long term (current) drug therapy; W22.8XXA Striking against or struck by other objects, initial encounter
CPT/HCPCS: 36415; 73700; 80053; 85025; 85379; 96374; 99284-25; A9270; J1940

== ENCOUNTER 2025-02-03 10:13 | Emergency (ER) | payer BC ==
[~2025-02-03] VITALS: Ht 195.6 cm; Wt 177.2 kg
[~2025-02-03 10:13] MED LIST changes: +LASIX20 MG PO; +ONDANSETRON ODT8 MG PO
[2025-02-03] MEDS ORDERED: DULOXETINE HCL20 MG (10:48)
[2025-02-03] MEDS ORDERED: ARTHRITIS PAIN150 G1 (10:48)
[2025-02-03] MEDS ORDERED: ONDANSETRON 4 MG TAB ODT SL ONE (11:00)
[2025-02-03] MEDS ORDERED: ACETAMINOPHEN 500 MG TAB PO ONE (11:00)
[2025-02-03] MEDS ORDERED: ONDANSETRON ODT8 MG PO (12:15)
[2025-02-03 12:30] VITALS: BP 143/84
== END 2025-02-03 12:34 | disposition home or self-care (01) ==
LOC: ED 10:13
DX: S06.0XAA Concussion with loss of consciousness status unknown, initial encounter (principal); I10 Essential (primary) hypertension; Z87.891 Personal history of nicotine dependence; Z88.2 Allergy status to sulfonamides; Z88.5 Allergy status to narcotic agent; Z88.0 Allergy status to penicillin; W22.09XA Striking against other stationary object, initial encounter
CPT/HCPCS: 70450; 99283-25; A9270

== ENCOUNTER 2025-02-20 19:01 | Emergency (ER) | payer BC ==
[~2025-02-20] VITALS: Ht 195.6 cm; Wt 159.0 kg
[~2025-02-20 19:01] MED LIST changes: +ARTHRITIS PAIN150 G1; +DULOXETINE HCL20 MG
--- OUTSIDE RECORDS SUMMARY | 2025-02-20 19:08 | XMS ---
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 - 2 Visits in 30 Days CARE PROVIDERS INDU GONZALES Internal Medicine Current PHONE: Unknown Jordan has no Care Guidelines for this patient. EYamileth VISIT COUNT (12 MO.) 4 [facility] TOTAL 4 NOTE: Visits indicate total known visits. ED/UCC VISIT TRACKING (12 MO.) 02/20/2025 19:01 [facility] [place] TYPE: Emergency COMPLAINT: - HEART RATE ISSUES 02/03/2025 10:14 [facility] [place] TYPE: Emergency COMPLAINT: - HEAD INJURY DIAGNOSES: - Allergy status to narcotic agent - Allergy status to penicillin - Allergy status to sulfonamides - Concussion with loss of consciousness status unknown, initial encounter - Essential (primary) hypertension - Headache, unspecified - Personal history of nicotine dependence - Striking against other stationary object, initial encounter 09/03/2024 19:44 [facility] [place] TYPE: Emergency COMPLAINT: - FOOT SWELLING DIAGNOSES: - Allergy status to narcotic agent - Allergy status to penicillin - Allergy status to sulfonamides - Contusion of right lower leg, initial encounter - Edema, unspecified - Essential (primary) hypertension - Injury, unspecified, initial encounter - Other halfway (current) drug therapy - Personal history of nicotine dependence - Striking against or struck by other objects, initial encounter 2024 19:34 [facility] [place] TYPE: Emergency COMPLAINT: - FALL DIAGNOSES: - Allergy status to narcotic agent - Allergy status to penicillin - Allergy status to sulfonamides - Contusion of right lower leg, initial encounter - Essential (primary) hypertension - Other terminal manager (current) drug therapy - Personal history of nicotine dependence - Striking against other object with subsequent fall, initial encounter - Unspecified injury of right lower leg, initial encounter INPATIENT VISIT TRACKING (12 MO.) No inpatient visits to display in this time frame [id number]
[2025-02-20 19:21] LABS: BASOPHILS 0.8 % (0-2); EOSINOPHILS 0.5 % (0-6); HEMATOCRIT 38.9 % (35.0-50.0); HEMOGLOBIN 13.4 g/dL (12.0-18.0); LYMPHOCYTES 23.4 % (24-44); MCH 30.7 (27-36); MCHC 34.3 g/dl (30-36); MCV 89.4 fl (81-99); MONOCYTES 11.5 % (0-12); NEUTROPHILS 63.8 % (39-80); PLATELET COUNT 123 K/uL (140-440); RBC 4.35 M/ul (4.3-5.7); RDW 13.5 (10.5-15.0)
[2025-02-20 19:33] LABS: ALBUMIN 3.4 g/dL (3.4-5.0); ALBUMIN/GLOBULIN RATIO 0.89 (1.1-2.4); ANION GAP 12.4 (7-21); BILIRUBIN, TOTAL 0.9 mg/dL (0.2-1.0); BUN/CREATININE RATIO 10.16 (6.0-28.6); CALCIUM 8.4 mg/dL (8.5-10.1); CREATININE, SERUM 1.77 mg/dL (0.70-1.30); MAGNESIUM 1.8 mg/dL (1.8-2.4); POTASSIUM 4.4 mmol/L (3.5-5.1); PROTEIN, TOTAL 7.2 g/dL (6.4-8.2)
[2025-02-20] MEDS ORDERED: ASPIRIN 81 MG CHEW PO ONE (19:45)
[2025-02-20 19:56] LABS: INR 1.16 (0.80-1.30); PROTIME 14.1 Sec (11.2-14.2)
[2025-02-20] MEDS ORDERED: FUROSEMIDE 20 MG/2 ML VIAL IV ONE (23:15)
[2025-02-21] MEDS ORDERED: CARVEDILOL3.125 MG PO (00:05)
[2025-02-21 00:32] VITALS: BP 144/96
--- NOTE | 2025-02-22 14:37 | EKG ---
[facility] [address] [facility] [place] [address] Signed Normal sinus rhythm Normal ECG When compared with ECG of 05-MAR-2022 05:45, No significant change was found Confirmed by Shiloh Sena MD () on 02/22/2025 2:37:07 PM Electronically Signed By: SHILOH SENA MD 02/22/25 1437 PATIENT NAME: CHETKRYSTLEGUMARO Electrocardiogram DATE OF : 62 PHYSICIAN: SHILOH SENA MD REPORT #: [id number] REPORT IS CONFIDENTIAL AND NOT TO BE RELEASED WITHOUT AUTHORIZATION
== END 2025-02-21 00:20 | disposition home or self-care (01) ==
LOC: ED 19:01
PROVIDERS: Family Medicine
DX: I47.10 Supraventricular tachycardia, unspecified (principal); I10 Essential (primary) hypertension; Z87.891 Personal history of nicotine dependence; Z88.2 Allergy status to sulfonamides; Z88.0 Allergy status to penicillin; Z88.5 Allergy status to narcotic agent; Z79.899 Other long term (current) drug therapy
CPT/HCPCS: 36415; 71045; 71260; 80053; 83735; 83880; 84484; 85025; 85379; 85610; 93005; 93010; 99285-25; A9270; J1940; Q9967

== ENCOUNTER 2025-02-28 03:09 | Emergency (ER) | payer BC ==
[~2025-02-28] VITALS: Ht 195.6 cm; Wt 159.0 kg
[~2025-02-28 03:09] MED LIST changes: +CARVEDILOL3.125 MG PO
--- OUTSIDE RECORDS SUMMARY | 2025-02-28 03:10 | XMS ---
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 EYamileth VISIT COUNT (12 MO.) 5 [facility] TOTAL 5 NOTE: Visits indicate total known visits. ED/UCC VISIT TRACKING (12 MO.) 02/28/2025 03:09 [facility] [place] TYPE: Emergency COMPLAINT: - HEART RATE ISSUES 02/20/2025 19:01 [facility] [place] TYPE: Emergency COMPLAINT: - HEART RATE ISSUES DIAGNOSES: - Allergy status to narcotic agent - Allergy status to penicillin - Allergy status to sulfonamides - Essential (primary) hypertension - Other joint terminal attack controller (current) drug therapy - Personal history of nicotine dependence - Shortness of breath - Supraventricular tachycardia, unspecified 02/03/2025 10:14 [facility] [place] TYPE: Emergency [...] - Injury, unspecified, initial encounter - Other joint terminal attack controller (current) drug therapy - Personal history of nicotine dependence - Striking against or struck by other objects, initial encounter 2024 19:34 [facility] [place] TYPE: Emergency COMPLAINT: - FALL DIAGNOSES: - Allergy status to narcotic agent - Allergy status to penicillin - Allergy status to sulfonamides - Contusion of right lower leg, initial encounter - Essential (primary) hypertension - Other long-term (current) drug therapy - Personal history of nicotine dependence - Striking against other object with subsequent fall, initial encounter - Unspecified injury of right lower leg, initial encounter INPATIENT VISIT TRACKING (12 MO.) No inpatient visits to display in this time frame [id number]
[2025-02-28 03:24] LABS: BASOPHILS 0.9 % (0-2); EOSINOPHILS 1.7 % (0-6); HEMATOCRIT 40.3 % (35.0-50.0); LYMPHOCYTES 32.1 % (24-44); MCH 30.9 (27-36); MCHC 34.7 g/dl (30-36); MCV 89.3 fl (81-99); MONOCYTES 9.5 % (0-12); NEUTROPHILS 55.8 % (39-80); PLATELET COUNT 172 K/uL (140-440); RBC 4.52 M/ul (4.3-5.7); RDW 13.4 (10.5-15.0)
[2025-02-28 04:07] LABS: ALBUMIN 3.4 g/dL (3.4-5.0); ALBUMIN/GLOBULIN RATIO 0.85 (1.1-2.4); ANION GAP 12.9 (7-21); BILIRUBIN, TOTAL 0.7 mg/dL (0.2-1.0); BUN/CREATININE RATIO 8.63 (6.0-28.6); CALCIUM 8.1 mg/dL (8.5-10.1); CREATININE, SERUM 1.39 mg/dL (0.70-1.30); MAGNESIUM 2.1 mg/dL (1.8-2.4); POTASSIUM 3.9 mmol/L (3.5-5.1); PROTEIN, TOTAL 7.4 g/dL (6.4-8.2)
[2025-02-28 04:36] VITALS: BP 110/75
--- NOTE | 2025-02-28 19:14 | EKG ---
[facility] [address] [facility] [place] [address] Signed Normal sinus rhythm Normal ECG When compared with ECG of 20-FEB-2025 19:39, Non-specific change in ST segment in Inferior leads T wave inversion now evident in Inferior leads T wave amplitude has increased in Lateral leads Confirmed by Angel Noel MD ([id number]) on 02/28/2025 7:14:20 PM Electronically Signed By: ANGEL NOEL MD 02/28/25 191 PATIENT NAME: GUMARO FOUNTAIN Electrocardiogram DATE OF : 62 PHYSICIAN: ANGEL NOEL MD REPORT #: [id number] REPORT IS CONFIDENTIAL AND NOT TO BE RELEASED WITHOUT AUTHORIZATION
== END 2025-02-28 04:30 | disposition home or self-care (01) ==
LOC: ED 03:09
PROVIDERS: Emergency Medicine
DX: I47.10 Supraventricular tachycardia, unspecified (principal); I10 Essential (primary) hypertension; Z79.899 Other long term (current) drug therapy; Z88.2 Allergy status to sulfonamides; Z88.0 Allergy status to penicillin; Z88.5 Allergy status to narcotic agent; Z87.891 Personal history of nicotine dependence
CPT/HCPCS: 36415; 80053; 83735; 83880; 84484; 85025; 93005; 93010; 99285